=== PATIENT | male | born 1975 | race Caucasian/White ===

== ENCOUNTER 2017-08-13 09:57 | Emergency (ER) | payer OTHER ==
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
--- NOTE | 2017-08-13 10:34 | RADIOLOGY IMAGING REPORT ---
FACILITY: [facility] PATIENT NAME: Minor Vidales : 1975 MR: [id number] V: [id number] EXAM DATE: ORDERING PHYSICIAN: VASQUEZ YI TECHNOLOGIST: Location: [facility] Patient: Minor Vidales : 1975 Visit/Account:[id number] Date of Sevice: 08/13/2017 Left fourth finger, 3 views. HISTORY: Injury. COMPARISON: None. Mild soft tissue swelling is present in the fourth finger. The fourth middle phalanx is dislocated do rsally with respect to the proximal phalanx. A metal ring encircles the proximal fourth finger. A sub chondral cyst is present distally in the third proximal phalanx. The bones and joints are otherwise u nremarkable. IMPRESSION: Fourth finger PIP dislocation. Results were discussed with VASQUEZ YI at 08/13/2017 10:30 AM. Report Dictated By: Kwaku Hopson MD at 08/13/2017 10:27 AM Report E-Signed By: Kwaku Hopson MD at 08/13/2017 10:30 AM WSN:[id number]
[2017-08-13 10:46] VITALS: BP 128/80
--- NOTE | 2017-08-13 10:52 | RADIOLOGY IMAGING REPORT ---
FACILITY: [facility] [place] PATIENT NAME: Minor Vidales : 1975 MR: [id number] V: [id number] EXAM DATE: ORDERING PHYSICIAN: VASQUEZ YI TECHNOLOGIST: Location[place] [facility] [place] Patient: Minor Vidales : 1975 Visit/Account:[id number] Date of Sevice: 08/13/2017 FINGER LEFT 4TH DIGIT INDICATION: Left finger dislocation. COMPARISON: X-ray done earlier in the day. FINDINGS: 3 views of the fourth left finger. The previous dislocation at the PIP joint has been red uced with anatomic alignment. No indication of fracture. No bony lesions or periosteal abnormality. S oft tissues show no radiopaque foreign body. IMPRESSION: Successful reduction of the previous PIP joint dislocation. No indication of fracture. Report Dictated By: Dariusz Gan at 08/13/2017 10:44 AM Report E-Signed By: Dariusz Gan at 08/13/2017 10:47 AM WSN:[id number]
== END 2017-08-13 10:46 | disposition home or self-care (01) ==
LOC: ER 10:15
DX: S63.259A Unspecified dislocation of unspecified finger, initial encounter (principal)
CPT/HCPCS: 99283